=== PATIENT | male | born 1960 | race Caucasian/White ===

== ENCOUNTER 2020-04-11 07:49 | Outpatient (CLI) | payer OTHER, SELFPAY ==
--- NOTE | 2020-04-11 | ECHO_ITS ---
Patient Info Name: Dameon Disla Age: 59 years : 1960 Gender: Male Ht: 70 in Wt: 150 lbs BSA: 1.83 m2 BP: 115 / 82 mmHg Heart Rhythm: Sinus Rhythm Exam Date: 04/11/2020 8:08 AM Exam Location: [facility] Patient Status: Outpatient Admit Date: 04/11/2020 Staff Ordering Physician: Jhonatan Pearson MD Food Cart Attendant: Kamryn Rubio RDCS Attending Provider: Jhonatan Pearson MD Referring Physician: Mihcel TENORIO; Exam Type: CA echo doppler color flow Study Info Indications - FAMILY HX OF ISCHEMIC HEART DISEASE Complete two-dimensional, color flow and Doppler transthoracic echocardiogram is performed. Summary 1. Complete two-dimensional, color flow and Doppler transthoracic echocardiogram is performed. 2. Left ventricular systolic function is lower limits of normal, estimated at 50-55%. 3. Left ventricular chamber dimension is normal. 4. There is no increased left ventricular wall thickness. 5. The left ventricular diastolic function is grade I diastolic dysfunction. 6. There is no aortic valve stenosis. 7. There is trace mitral valve regurgitation. 8. There is trace tricuspid valve regurgitation. 9. Unable to estimate PA systolic pressure due to poor visualization of tricuspid regurgitant jet velocity. Left Ventricle Left ventricular chamber dimension is normal. Left ventricular systolic function is lower limits of normal, estimated at 50-55%. There is no increased left ventricular wall thickness. The left ventricular diastolic function is grade I diastolic dysfunction. Right Ventricle Right ventricular chamber dimension is normal. Right ventricular systolic function is normal. Left Atria Left atrial chamber dimension is normal. Right Atria Right atrial chamber dimension is normal. Aortic Valve The aortic valve is trileaflet. There is no aortic valve stenosis. There is no aortic valve regurgitation. Pulmonic Valve The pulmonic valve is not well visualized. There is trace pulmonic regurgitation. Mitral Valve The mitral valve has normal leaflets. There is trace mitral valve regurgitation. Tricuspid Valve The tricuspid valve leaflets are normal. There is trace tricuspid valve regurgitation. Unable to estimate PA systolic pressure due to poor visualization of tricuspid regurgitant jet velocity. Pericardium/Pleural The pericardium appears normal. There is no pericardial effusion. Inferior Vena Cava Normal inferior vena cava with >50% collapse upon inspiration consistent with normal right atrial pressure, 5 mmHg. Aorta The aortic root size at the sinus of Valsalva is normal. Left Ventricular Outflow Tract Name Value Normal LVOT 2D LVOT Diameter 2.0 cm LVOT Doppler LVOT Peak Gradient 2 mmHg LVOT Mean Gradient 1 mmHg LVOT VTI 12 cm LVOT VTI/AV VTI Ratio 0.7 LVOT Stroke Volume 39 ml LVOT CO 2.9 l/min LVOT CI 1.6 l/min/m2 Mitral Valve
== END 2020-04-11 07:50 | disposition home or self-care (01) ==
PROVIDERS: PCP Emergency Medicine; Visit Provider Emergency Medicine
DX: Z82.49 Family history of ischemic heart disease and other diseases of the circulatory system (principal)
CPT/HCPCS: 93306

== ENCOUNTER 2021-10-06 01:14 | Day surgery (SDC) | payer OTHER, SELFPAY ==
[2021-09-30 11:23] VITALS: BMI 21.4
[2021-10-06 09:23] VITALS: BP 143/83; PULSE 92; RESP 15; TEMP 36.5; O2SAT 100; BMI 20.7
[2021-10-06] MEDS: LACTATED RINGERS 1,000 ML 150 ML IV CONT (09:33)
[2021-10-06 09:35] LABS: Glucose Point of Care 137 mg/dl (65-105)
--- NOTE | 2021-10-06 09:40 | WPDGICN ---
Assessment and Plan Assessment and plan (1) GERD (gastroesophageal reflux disease): Code(s): K21.9 - Gastro-esophageal reflux disease without esophagitis Status: Acute Assessment and Plan: Patient has a long history of GE reflux disease. Chronic PPI use is been suggested in his required to control symptoms. Plan is for surveillance EGD to exclude Hi's esophagus. Further recommendations may be given after endoscopy. Continue anti-reflux measures ears encourage. (2) History of colon polyps: Code(s): Z86.010 - Personal history of colonic polyps Status: Acute Assessment and Plan: Patient has a history of colon polyps identified last year. Plan is for surveillance colonoscopy at 5 year intervals. GI Consult Note Consult date/time: 10/06/21 09:40 HPI: Dameon Disla is a 60 year old male Presents for EGD. Patient gives a long history of GE reflux. Patient states he takes Prevacid daily sometimes he will supplement this with Tagamet. He states if he stops the Prevacid symptoms promptly recure. patient denies any dysphagia. He has had no bleeding or weight loss. He states perhaps 15 years ago had an unremarkable EGD. He is referred today because of ongoing symptoms. Last year he had a colonoscopy which revealed benign colonic adenoma. Follow-up colonoscopy is suggested 2025. Family history is noncontributory. Review of Systems Review of Systems: All systems reviewed & are unremarkable except as noted in HPI and below [facility] Family History Family History (Updated 02/27/16 @ 23:21 by DOCTOR UNKNOWN) Mother Patient's mother is in good health Sibling Patient's sister is in good health Father Patient's father is Social History Social History Smoking packs per day: 0.5 Smoking cigarettes per day: 10.0 Years smoked: 20 Smoking pack-years: 10.00 Smoking status: Former smoker Tobacco type: cigarettes Alcohol intake: current Drinks per week: 1 Substance use: never Substance use type: does not use Living arrangements: with family Spiritual care concerns: No Meds Home Medications and Allergies Home Medications Medication Instructions Recorded Confirmed Type aspirin [Adult Aspirin] 81 mg PO QPM 09/30/21 10/06/21 History cholecalciferol (vitamin D3) 50 mcg PO QPM 09/30/21 10/06/21 History [Vitamin D3] clonazepam 0.5 mg PO QPM 09/30/21 10/06/21 History diphenhydramine HCl [Benadryl] 25 mg PO HS 09/30/21 10/06/21 History famotidine 40 mg PO QPM 09/30/21 10/06/21 History metformin 1,000 mg PO QPM 09/30/21 10/06/21 History omeprazole magnesium [Prilosec OTC] 20 mg PO QPM 09/30/21 10/06/21 History risperidone 0.5 mg PO QPM 09/30/21 10/06/21 History Allergies Allergy/AdvReac Type Severity Reaction Status Date / Time No Known Allergies Allergy Verified 10/06/21 09:22 Vital Signs Vital Signs - 24 hr 10/06/21 09:23 Temperature 97.7 F Pulse Rate 92 Respiratory Rate 15 Blood Pressure 143/83 H Pulse Oximetry 100 Exam Narrative: Physical exam reveals patient to be alert. Vital signs stable. HEENT exam unremarkable. Patient is anicteric. Lungs are clear to auscultation and percussion. Heart is without murmur or extra sounds. Abdominal exam bowel sounds are present soft nontender with no organomegaly. Digital external rectal exam is normal.
--- NOTE | 2021-10-06 09:57 | P.PNAN_ITS ---
Anes - Initial Pre Proc Eval Procedure: Operation Date: 10/06/21 10:30 Proposed Procedures p Esophagogastroduodenoscopy - Juan Ramon Del Rio MD Date/Time: 10/06/21 09:57 Surgeon: Juan Ramon Del Rio MD Pre Op Diagnosis: GERD Patient Data Age: 60 Gender: M Height: 1.78 m Weight: 65.7 kg Last Vital Signs Temp 97.7 F 10/06/21 09:23 Pulse 92 10/06/21 09:23 Resp 15 10/06/21 09:23 BP 143/83 H 10/06/21 09:23 Pulse Ox 100 10/06/21 09:23 Allergies Allergy/AdvReac Type Severity Reaction Status Date / Time No Known Allergies Allergy Verified 10/06/21 09:22 Home Medications Medication Instructions Recorded Confirmed Type aspirin [Adult Aspirin] 81 mg PO QPM 09/30/21 10/06/21 History cholecalciferol (vitamin D3) 50 mcg PO QPM 09/30/21 10/06/21 History [Vitamin D3] clonazepam 0.5 mg PO QPM 09/30/21 10/06/21 History diphenhydramine HCl [Benadryl] 25 mg PO HS 09/30/21 10/06/21 History famotidine 40 mg PO QPM 09/30/21 10/06/21 History metformin 1,000 mg PO QPM 09/30/21 10/06/21 History omeprazole magnesium [Prilosec OTC] 20 mg PO QPM 09/30/21 10/06/21 History risperidone 0.5 mg PO QPM 09/30/21 10/06/21 History Laboratory Tests 10/06/21 09:27 POC Capillary Glucose 137 mg/dl H mg/dl (65-105) Patient hx anesthesia problems: none Family hx anesthesia problems: none Results Review: All pre-operative results and documents have been reviewed as part of the pre-operative evaluation. [facility] Family History Family History (Updated 02/27/16 @ 23:21 by DOCTOR UNKNOWN) Mother Patient's mother is in good health Sibling Patient's sister is in good health Father Patient's father is Social History Social History Smoking packs per day: 0.5 Smoking cigarettes per day: 10.0 Years smoked: 20 Smoking pack-years: 10.00 Smoking status: Former smoker Tobacco type: cigarettes Alcohol intake: current Drinks per week: 1 Substance use: never Substance use type: does not use Living arrangements: with family Spiritual care concerns: No Anes - Eval Final PreProcedure Day of Procedure 10/06/21 09:57 Patient weight: normal Heart: regular rate and rhythm Lungs: clear to auscultation Airway: Mallampati scale class II Neurological: alert and oriented Last oral intake: >/= 8 hours ASA classification: II Emergent: no Anesthetic plan: proceed Anesthesia type and monitoring: general GIVS and standard monitoring Results Review: All pre-operative results and documents have been reviewed as part of the pre-operative evaluation. Informed Consent: The patient's anesthetic plan and its attendant risks and benefits were discussed with the patient/family/POA. Questions were solicited an d answers provided to the satisfaction of the patient/family/POA.
--- NOTE | 2021-10-06 10:00 | P.PNAN_ITS ---
Anes - Initial Pre Proc Eval Procedure: Operation Date: 10/06/21 10:30 Proposed Procedures p Esophagogastroduodenoscopy - Juan Ramon Del Rio MD Date/Time: 10/06/21 10:00 Surgeon: Juan Ramon Del Rio MD Pre Op Diagnosis: GERD Patient Data Age: 60 Gender: M Height: 1.78 m Weight: 65.7 kg Last Vital Signs Temp 97.7 F 10/06/21 09:23 Pulse 92 10/06/21 09:23 Resp 15 10/06/21 09:23 BP 143/83 H 10/06/21 09:23 Pulse Ox 100 10/06/21 09:23 Allergies Allergy/AdvReac Type Severity Reaction Status Date / Time No Known Allergies Allergy Verified 10/06/21 09:22 Home Medications Medication Instructions Recorded Confirmed Type aspirin [Adult Aspirin] 81 mg PO QPM 09/30/21 10/06/21 History cholecalciferol (vitamin D3) 50 mcg PO QPM 09/30/21 10/06/21 History [Vitamin D3] clonazepam 0.5 mg PO QPM 09/30/21 10/06/21 History diphenhydramine HCl [Benadryl] 25 mg PO HS 09/30/21 10/06/21 History famotidine 40 mg PO QPM 09/30/21 10/06/21 History metformin 1,000 mg PO QPM 09/30/21 10/06/21 History omeprazole magnesium [Prilosec OTC] 20 mg PO QPM 09/30/21 10/06/21 History risperidone 0.5 mg PO QPM 09/30/21 10/06/21 History Laboratory Tests 10/06/21 09:27 POC Capillary Glucose 137 mg/dl H mg/dl (65-105) Patient hx anesthesia problems: none Family hx anesthesia problems: none Results Review: All pre-operative results and documents have been reviewed as part of the pre-operative evaluation. [facility] Family History Family History (Updated 02/27/16 @ 23:21 by DOCTOR UNKNOWN) Mother Patient's mother is in good health Sibling Patient's sister is in good health Father Patient's father is Social History Social History Smoking packs per day: 0.5 Smoking cigarettes per day: 10.0 Years smoked: 20 Smoking pack-years: 10.00 Smoking status: Former smoker Tobacco type: cigarettes Alcohol intake: current Drinks per week: 1 Substance use: never Substance use type: does not use Living arrangements: with family Spiritual care concerns: No Anes - Eval Final PreProcedure Day of Procedure 10/06/21 10:00 Patient weight: normal Heart: regular rate and rhythm Lungs: clear to auscultation Airway: Mallampati scale class II Neurological: alert and oriented Last oral intake: >/= 8 hours ASA classification: II Emergent: no Anesthetic plan: proceed Anesthesia type and monitoring: general GIVS and standard monitoring Results Review: All pre-operative results and documents have been reviewed as part of the pre-operative evaluation. Informed Consent: The patient's anesthetic plan and its attendant risks and benefits were discussed with the patient/family/POA. Questions were solicited an d answers provided to the satisfaction of the patient/family/POA.
[2021-10-06 10:30] VITALS: BP 101/70; PULSE 73; RESP 16; O2SAT 98
[2021-10-06 10:40] VITALS: BP 102/73; PULSE 79; RESP 16; O2SAT 100
== END 2021-10-06 10:57 | disposition home or self-care (01) ==
PROVIDERS: PCP Emergency Medicine; Visit Provider Internal Medicine Gastroenterology
PROC: 0DJ08ZZ Inspection of Upper Intestinal Tract, Via Natural or Artificial Opening Endoscopic (ICD-10-PCS; CPT 43235; principal; 2021-10-06 10:30)
DX: K21.9 Gastro-esophageal reflux disease without esophagitis (principal); Z87.891 Personal history of nicotine dependence; Z79.84 Long term (current) use of oral hypoglycemic drugs; Z79.82 Long term (current) use of aspirin
CPT/HCPCS: 43239; 82948; 87081; J2704; J7120

== ENCOUNTER 2025-06-05 14:09 | Outpatient (CLI) | payer OTHER, SELFPAY ==
--- NOTE | 2025-06-05 | ECG_ITS ---
Test Date: 2025-06-05 14:36:23 Measurements Intervals [place] Rate: 70 P: 20 NE: 170 QRS: -18 QRSD: 94 T: 43 QT: 363 QTc: 394 Interpretive Statements SINUS RHYTHM LEFT AXIS DEVIATION ABNORMAL ECG No previous ECG available for comparison Electronically Signed On 06-05-2025 14:45:46 [employer] by Tony Mosqueda M.D.
[2025-06-05 15:36] LABS: Anion Gap 11 mmol/L (4-12); Blood Urea Nitrogen 19 mg/dL (9-20); Calcium 9.5 mg/dL (8.4-10.2); Carbon Dioxide 26 mmol/L (22-30); Chloride 103 mmol/L (98-107); Estimated Glomerular Filt Rate > 60; Glucose 108 mg/dL (65-110); Potassium 4.2 mmol/L (3.4-5.0); Sodium 140 mmol/L (137-145)
== END 2025-06-05 14:10 | disposition home or self-care (01) ==
LOC: ANHLAB 14:12
PROVIDERS: PCP Emergency Medicine; Visit Provider Nurse Anesthetist, Certified Registered
DX: Z01.818 Encounter for other preprocedural examination (principal); R94.31 Abnormal electrocardiogram [ECG] [EKG]
CPT/HCPCS: 36415; 80048; 93005